=== PATIENT | male | born 1950 | race Caucasian/White ===

== ENCOUNTER 2016-05-24 13:01 | Emergency (ER) | payer MEDICARE ==
[2016-05-24 13:11] VITALS: BP 128/71
[2016-05-24] MEDS ORDERED: KETOROLAC TROMETHAMINE 60 MG/2 ML VIAL IM ONE ×2 (14:49→14:52)
--- NOTE | 2016-05-24 14:49 | ERNOTE ---
Lower Extremity HPI - Narrative Date of Service: 05/24/16 - General Lower Extremities Pain: leg: right - medial lower Time Seen by Provider: 05/24/16 14:17 Source: patient Exam Limitations: no limitations - Immun/Allergies/Home Medications Immunizations: IMMUNIZATION HX Immunizations Up to Date No History of Influenza Vaccine No Hx Pneumococcal Vaccination No Allergies/Adverse Reactions: Allergies Allergy/AdvReac Type Severity Reaction Status Date / Time No Known Allergies Allergy Verified 05/24/16 13:11 Home Medications: HOME MEDICATIONS metFORMIN HCL [Glucophage] 500 mg PO BIDWM 12/10/14 [Last Taken 05/24/16] Ropinirole HCl [Requip Xl] 2 mg PO HS #1 tab.er.24h 03/06/16 [Last Taken ] Meloxicam [Mobic] 7.5 mg PO DAILY #30 tab 05/24/16 [Last Taken Unknown] oxyCODONE HCL/ACETAMINOPHEN [Percocet 5 MG/325 MG] 2 tab PO Q6H PRN 05/24/16 [ Last Taken 05/24/16] - History of Present Illness Narrative: Pt. comes in with c/o R medial knee pain that started two months ago when he was cranking on a truck lever and felt a pop in his R knee. Pt. was seen at [facility] at that time for the injury and was diagnosed with a knee strain and given [place]. Pt. since has seen his PCP and was given a cortisone injection and percocet which he denies relief from. Pt. states that ambulating worsens the symptoms and nothing alleviates the symptoms. Review of Systems - Review of Systems Constitutional: Present: no symptoms reported. Absent: recent illness, fever, chills, fatigue, malaise EYE: Present: no symptoms reported ENT: Present: no symptoms reported Respiratory: Present: no symptoms reported. Absent: shortness of breath, cough , wheezing Cardiology: Present: no symptoms reported. Absent: chest pain, palpitations, edema Gastrointestinal/Abdominal: Present: no symptoms reported. Absent: nausea, vomiting, diarrhea Genitourinary: Present: no symptoms reported Musculoskeletal: Present: other - L lmedial leg proximal tibia. Absent: back pain, joint pain Skin: Present: no symptoms reported Neurological: Present: no symptoms reported. Absent: headache, dizziness/light- headedness, numbness, tingling Endocrine: Present: no symptoms reported, unexplained weight loss All Other Systems: All systems neg except as marked - Patient's Past Medical History Patient History - Medical: Anxiety, Diabetes Type 2 Patient History - Cardiac/Respiratory: No pertinent hx Patient History - Cancer: No Hx of Cancer Patient History - Surgical Procedures: Total Knee Replacement - Family History Father Family History - Medical: , No pertinent hx Mother Family History - Medical: , No pertinent hx - Social History Living Situations: home Smoking Status: Current every day smoker Have you smoked in the past 12 months: Yes Do you dip or chew tobacco: No Alcohol Use: none Drug Use: none Physical Exam - Physical Exam General Appearance: Present: wd/wn, alert, no apparent distress Eye Exam: Normal inspection: bilateral, PERRL: bilateral, EOMI: bilateral Ears, Nose, Throat: Present: normal ENT inspection, hearing grossly normal, normal pharynx Neck: Present: normal inspection, nontender. 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 Absent: pallor, skin rash ED Progress - Vital Signs Patient's Vital Signs:: I have reviewed the patient's vital signs. Vital Signs: Vital Signs 05/24/16 13:04 Temperature 36.1 C L Pulse Rate 88 Respiratory 16 Rate Blood Pressure 128/71 O2 Sat by Pulse 100 Oximetry - X-Ray X-Ray #1 X-Ray: tibula/fibula Interpretation: Reviewed by me X-ray Comments: no acute osseous abnormality - Progress/Reassessment Chief Complaint: Lower Extremity Pain/ Injury Progress:: Improved Departure Clinical Impression: Tendinopathy - Departure Disposition: Home self-care Condition: Good Instructions: Patellar Tendon Tear or Disruption With Rehab-[facility] Additional Instructions: Please make appointment for follow up with your orthopedist and stop percocet and change to meloxicam Prescriptions: Meloxicam [Mobic] 7.5 mg PO DAILY #30 tab
== END 2016-05-24 16:41 | disposition home or self-care (01) ==
LOC: ER 13:01
DX: M76.821 Posterior tibial tendinitis, right leg (principal); E11.9 Type 2 diabetes mellitus without complications; F17.210 Nicotine dependence, cigarettes, uncomplicated